=== PATIENT | female | born 1955 | race Caucasian/White ===

== ENCOUNTER 2016-08-11 02:10 | Emergency (ER) | payer MEDICARE, OTHER ==
[~2016-08-11] VITALS: Ht 167.6 cm; Wt 84.0 kg
[2016-08-11 02:13] VITALS: Ht 167.6 cm; Wt 84.0 kg
--- NOTE | 2016-08-11 03:12 | ERA ---
ER Documentation Chief Complaint Date/Time DATE: 08/11/16 TIME: 03:12 Chief Complaint blood in stools x 5 days, HPI The patient is a 61-year-old female, presenting to the ER because of intermittent bloody stool for the last 3 days. Symptoms previously, denies fever, chills, neck pain, chest pain, dyspnea, complains of vague abdominal discomfort, denied dysuria, complaints of diarrhea. She does not smoke nor drink, does not take an antibiotic recently. She does not smoke nor drink Past medical history: Hepatitis C, hypertension Past surgical history: Hysterectomy ROS All systems reviewed and are negative except as per history of present illness. Medications Home Meds Reported Medications Oxybutynin Chloride* (Ditropan* XL) 10 Mg Tab.er.24, 20 MG PO DAILY, TAB.SA 08/11/16 Sitagliptin* (Januvia*) 100 Mg Tablet, 100 MG PO DAILY, #30 TAB 08/11/16 Temazepam* (Restoril*) 30 Mg Capsule, 30 MG PO HS Y for INSOMNIA, CAP 08/11/16 Haloperidol* (Haldol*) 5 Mg Tab, 5 MG PO TID, TAB 08/11/16 Haloperidol* (Haldol*) 5 Mg Tab, 5 MG PO QHS, TAB 08/11/16 Buspirone Hcl* (Buspirone Hcl*) 10 Mg Tab, 15 MG PO BID, TAB 08/11/16 Escitalopram Oxalate* (Lexapro*) 20 Mg Tablet, 20 MG PO DAILY, #30 TAB 08/11/16 Allergies Allergies: Coded Allergies: Penicillins (Unverified Allergy, Severe, ITCHING,SWELLING, 08/11/16) erythromycin base (Unverified Allergy, Intermediate, BLISTERS; SWELLING, ) acetaminophen (Unverified Allergy, Mild, ITCHING, SWELLING, 08/11/16) hydrocodone (Unverified Allergy, Mild, ITCHING, SWELLING, 08/11/16) Sulfa (Sulfonamide Antibiotics) (Unverified Allergy, Unknown, SWELLING OF SKIN, ITCHING, 08/11/16) Physical Exam Vitals Vital Signs Date Time Temp Pulse Resp B/P Pulse Ox O2 Delivery O2 Flow Rate FiO2 08/11/16 02:13 98.3 89 20 156/80 98 Physical Exam Const: No acute distress. Head: Atraumatic. Eyes: Normal Conjunctiva. ENT: Normal External Ears, Nose and Mouth. Neck: Full range of motion. No meningismus. Resp: Clear to auscultation bilaterally. Cardio: Regular rate and rhythm. Abd: Soft, non distended, normal bowel sounds, non tender. Skin: No petechiae or rashes. Back: No midline or flank tenderness. Ext: No cyanosis, or edema. Neur: Awake and alert. No focal deficit Psych: Normal Mood and Affect. Rectal: No external hemorrhoids, no melena Result Diagram: 08/11/16 0355 08/11/16 0355 Results 24 hrs Laboratory Tests Test 08/11/16 03:55 08/11/16 03:58 White Blood Count 4.810^3/ul Red Blood Count 3.9910^6/ul Hemoglobin 12.2g/dl Hematocrit 37.9% Mean Corpuscular Volume 95.0fl Mean Corpuscular Hemoglobin 30.6pg Mean Corpuscular Hemoglobin Concent 32.2g/dl Red Cell Distribution Width 14.2% Platelet Count 29857^3/UL Mean Platelet Volume 9.6fl Neutrophils % 64.0% Lymphocytes % 25.0% Monocytes % 7.0% Eosinophils % 4.0% Neutrophils # 3.110^3/ul Lymphocytes # 1.210^3/ul Monocytes # 0.310^3/ul Eosinophils # 0.210^3/ul Platelet Estimate PLT APPEAR ADEQUATE Prothrombin Time 13.2Sec Prothrombin Time Ratio 1.0 INR International Normalized Ratio 1.00 Activated Partial Thromboplast Time 29.0Sec Sodium Level 149mmol/L Potassium Level 3.7mmol/L Chloride Level 109mmol/L Carbon Dioxide Level 27mmol/L Anion Gap 17 Blood Urea Nitrogen 10mg/dl Creatinine 0.67mg/dl Glucose Level 99mg/dl Calcium Level 9.4mg/dl Total Bilirubin 0.2mg/dl Direct Bilirubin 0.00mg/dl Indirect Bilirubin 0.2mg/dl Aspartate Amino Transf (AST/SGOT) 76IU/L Alanine Aminotransferase (ALT/SGPT) 77IU/L Alkaline Phosphatase 72IU/L Total Protein 7.2g/dl Albumin 4.7g/dl Globulin 2.50g/dl Albumin/Globulin Ratio 1.88 Lipase 155U/L Bedside Urine pH (LAB) 6.0 Bedside Urine Protein (LAB) 1+ Bedside Urine Glucose (UA) Negative Bedside Urine Ketones (LAB) Negative Bedside Urine Blood Trace-intact Bedside Urine Nitrite (LAB) Negative Bedside Urine Leukocyte Esterase (L Negative Procedures/MDM MEDICAL MAKING DECISION: The patient is a 61-year-old female, presenting with acute hematochezia. He is stable for outpatient follow-up. Hemoccult is pending The differential diagnoses considered include but are not limited to gastritis, peptic ulcer disease, esophageal varices, Jenny-Alvarez tear, carcinoma, polyp, hemorrhoid, fissure, diverticulosis, angiodysplasia. Departure Diagnosis: Primary Impression: Hematochezia Condition: Good Comments I discussed the findings with the patient. I advised the patient to follow-up with the primary physician in about 1-2 days for referral to arts administrator or manager for colonoscopy, sooner if needed and return if any concern. KEEGAN MARTINEZ MD Aug 11, 2016 03:12
[2016-08-11 03:55] LABS: URINE BLOOD (Dip) POC Trace-intact (NEGATIVE)
[2016-08-11 04:07] LABS: ADD SCAN DIFF NO
[2016-08-11 04:11] LABS: HEMATOCRIT 37.9 % (37.0-47.0); HEMOGLOBIN 12.2 g/dl (12.0-16.0); MEAN CORPUSCULAR HEMOGLOBIN 30.6 pg (29.0-33.0); MEAN CORPUSCULAR HGB CONC 32.2 g/dl (32.0-37.0); MEAN PLATELET VOLUME 9.6 fl (7.4-10.4); PLATELET COUNT 250 10^3/UL (140-415); RED BLOOD COUNT 3.99 10^6/ul (4.20-5.40); RED CELL DISTRIBUTION WIDTH 14.2 % (11.5-14.5); WHITE BLOOD COUNT 4.8 10^3/ul (4.8-10.8)
[2016-08-11 04:26] LABS: PROTIME 13.2 Sec (12.2-14.2)
[2016-08-11 04:28] LABS: ALBUMIN 4.7 g/dl (3.3-4.9); ALBUMIN/GLOBULIN RATIO 1.88; BILIRUBIN,INDIRECT 0.2 mg/dl (0-1.1); BILIRUBIN,TOTAL 0.2 mg/dl (0.2-1.3); CALCIUM 9.4 mg/dl (8.4-10.2); CREATININE 0.67 mg/dl (0.44-1.00); POTASSIUM 3.7 mmol/L (3.5-5.1); TOTAL PROTEIN 7.2 g/dl (6.1-8.1)
[2016-08-11 04:39] LABS: EOSINOPHILS # 0.2 10^3/ul (0.0-0.5); LYMPHOCYTES # 1.2 10^3/ul (0.8-2.9); MONOCYTE # 0.3 10^3/ul (0.3-0.9); NEUTROPHIL # 3.1 10^3/ul (1.6-7.5)
[2016-08-11 04:40] LABS: PLATELET ESTIMATE PLT APPEAR ADEQUATE
[2016-08-11] MEDS ORDERED: HAL5 PO ×2 (04:54)
[2016-08-11] MEDS ORDERED: ESCI20TA PO (04:54)
[2016-08-11] MEDS ORDERED: TEMA30CA6 PO (04:54)
[2016-08-11] MEDS ORDERED: OXYB10TA6 PO (04:54)
[2016-08-11] MEDS ORDERED: BUSP10TA2 PO (04:54)
[2016-08-11] MEDS ORDERED: SITA100T8 PO (04:54)
[2016-08-11] MEDS ORDERED: D-ME473S18 PO (05:15)
[2016-08-11 05:17] VITALS: BP 185/87; PULSE 83; RESP 18
== END 2016-08-11 05:28 | disposition home or self-care (01) ==
LOC: E/R 02:10
DX: K92.1 Melena (principal); I10 Essential (primary) hypertension; Z79.84 Long term (current) use of oral hypoglycemic drugs
CPT/HCPCS: 36415; 80053; 81003; 83690; 85025; 85610; 85730; 86850; 86900; 86901; 99283